=== PATIENT | male | born 1940 | race Caucasian/White ===

== ENCOUNTER 2020-08-13 17:01 | Emergency (ER) | payer MEDICARE, OTHER ==
[~2020-08-13] VITALS: Ht 167.6 cm; Wt 79.4 kg
--- NOTE | 2020-08-13 17:18 | NUR ---
PT DOES NOT REMEMBER HOME MEDICATION NAMES AND DOSAGES. PT'S IS GOING TO BRING MEDICATION LIST LATER.
[2020-08-13] MEDS ORDERED: TDAP DIPH,PERTUSS,TET VAC/PF 0.5 ML DISP.SYRIN IM ONE ×2 (17:30→18:11)
[2020-08-13 17:45] LABS: *BILIRUBIN,URIN NEGATIVE (NEGATIVE); *BLOOD, URINE NEGATIVE (NEGATIVE); *CLARITY,URINE CLEAR (CLEAR); *COLOR,URINE YELLOW (YELLOW); *KETONES,URINE NEGATIVE (NEGATIVE); *UROBILINOGEN,URINE 0.2 E.U./dl (NORMAL); LEUKOCYTE ESTERASE ,URINE NEGATIVE (NEGATIVE); NITRITE, URINE NEGATIVE (NEGATIVE); PH,URINE 7.5 (5.0-8.0); UGLUCOSE NEGATIVE (NEGATIVE)
[2020-08-13 17:51] LABS: BASOPHILS % (AUTO) 0.7 % (0.0-2.0); EOSINOPHILS # (AUTO) 0.2 K/uL (0.0-0.7); EOSINOPHILS % (AUTO) 3.5 % (0.0-7.0); LYMPHOCYTES # (AUTO) 1.8 K/uL (20.0-40.0); LYMPHOCYTES % (AUTO) 37.3 % (20.5-51.5); MEAN CORPUSCULAR HEMOGLOBIN 32.2 uug (23.8-33.4); MEAN CORPUSCULAR HGB CONC 34 g/dL (32.5-36.3); MEAN CORPUSCULAR VOLUME 94.3 fL (73.0-96.2); MONOCYTES # (AUTO) 0.5 K/uL (2.0-10.0); MONOCYTES % (AUTO) 9.4 % (0.0-11.0); NEUTROPHILS # (AUTO) 2.4 K/uL (1.8-8.9); NEUTROPHILS % (AUTO) 49.1 % (38.5-71.5); PLATELET COUNT (AUTO) 190 K/uL (152-348); RED BLOOD CELL COUNT(AUTO) 4.03 MIL/uL (4.06-5.63)
[2020-08-13 18:03] LABS: CREATININE 1.1 mg/dL (0.6-1.3); POTASSIUM 4.4 mmol/L (3.5-5.1)
[2020-08-13 18:09] LABS: BILIRUBIN,DIRECT 0.1 mg/dL (0.0-0.2); BILIRUBIN,TOTAL 0.4 mg/dL (0.2-1.0); TOTAL PROTEIN, SERUM 7.3 g/dL (6.4-8.2)
--- NOTE | 2020-08-13 19:00 | NUR ---
Assumed care of pt from day shift nurse Vi.
--- NOTE | 2020-08-13 21:21 | NUR ---
Patient discharged to home in stable condition. Written and verbal after care instructions given. Patient and family verbalizes understanding of instructions. Stressed follow up or return to ER for worsening s/s. All belongings with patient. Wheeled patient on private car, family with patient.
[2020-08-13 21:23] VITALS: BP 132/85
== END 2020-08-13 21:20 | disposition home or self-care (01) ==
LOC: ER 17:03
DX: S01.81XA Laceration without foreign body of other part of head, initial encounter (principal); W01.198A Fall on same level from slipping, tripping and stumbling with subsequent striking against other object, initial encounter; Y93.E8 Activity, other personal hygiene; Y92.031 Bathroom in apartment as the place of occurrence of the external cause; I95.1 Orthostatic hypotension; G20 Parkinson's disease; S00.83XA Contusion of other part of head, initial encounter; I44.0 Atrioventricular block, first degree
CPT/HCPCS: 36415; 70030-TC; 70450; 70486; 71045; 72125; 85025; 85730; 90715; 93005; A4217; A4663

== ENCOUNTER 2024-12-12 03:38 | Inpatient (IN) | payer MEDICARE, OTHER ==
[~2024-12-12] VITALS: Ht 165.1 cm; Wt 88.5 kg
[2024-12-12] VITALS (55 sets, daily range): BP systolic 82–148; BP diastolic 42–72; TEMP 97.1–98.6; O2SAT 92–100
[2024-12-12] MEDS ORDERED: FUROSEMIDE 40 MG/4 ML VIAL ONE (03:58)
[2024-12-12 04:01] LABS: BASOPHILS % (AUTO) 0.5 % (0.0-2.0); EOSINOPHILS % (AUTO) 0.4 % (0.0-7.0); LYMPHOCYTES # (AUTO) 1.1 K/uL (0.8-4.8); LYMPHOCYTES % (AUTO) 16.5 % (20.5-51.5); MEAN CORPUSCULAR HEMOGLOBIN 20.5 uug (23.8-33.4); MEAN CORPUSCULAR HGB CONC 31 g/dL (32.5-36.3); MEAN CORPUSCULAR VOLUME 65.7 fL (73.0-96.2); MONOCYTES # (AUTO) 0.6 K/uL (0.1-1.30); MONOCYTES % (AUTO) 8.6 % (0.0-11.0); NEUTROPHILS # (AUTO) 4.8 K/uL (1.8-8.9); PLATELET COUNT (AUTO) 286 K/uL (152-348); RED CELL DISTRIBUTION WIDTH 20.7 % (12.1-16.2); WHITE BLOOD COUNT (AUTO) 6.5 K/uL (3.6-10.2)
[2024-12-12] MEDS: FUROSEMIDE 40 MG/4 ML VIAL IV ONE (04:02)
[2024-12-12 04:11] LABS: CALCIUM 8.7 mg/dL (8.5-10.1); CARBON DIOXIDE 28 mmol/L (21-32); CHLORIDE 101 mmol/L (98-107); CREATININE 1.3 mg/dL (0.6-1.3); GLUCOSE 129 mg/dL (74-106); POTASSIUM 4.8 mmol/L (3.5-5.1); SODIUM SERUM 134 mmol/L (136-145); UREA NITROGEN, BLOOD 41 mg/dL (7-18)
[2024-12-12 04:14] LABS: DIFFERENTIAL COMMENT 1
[2024-12-12 04:16] LABS: HEMATOCRIT 18.4 % (36.7-47.1); HEMOGLOBIN 5.7 g/dL (12.5-16.3)
[2024-12-12 04:25] LABS: ALANINE AMINOTRANSFERASE 6 U/L (16-63); ALBUMIN 3.1 g/dL (3.4-5.0); ALKALINE PHOSPHATASE 51 U/L (50-136); ASPARTATE AMINOTRANSFERASE 10 U/L (15-37); BILIRUBIN,TOTAL 0.5 mg/dL (0.2-1.0); NT-PRO BNP 1795 pg/mL (0-125); TOTAL PROTEIN, SERUM 6.4 g/dL (6.4-8.2)
[2024-12-12] MEDS ORDERED: FURO20TA4 PO (04:31)
[2024-12-12] MEDS ORDERED: PANTOPRAZOLE SODIUM 40 MG VIAL ONE (04:48)
[2024-12-12] MEDS: PANTOPRAZOLE SODIUM IV 40 MG in IV DEXTROSE 5% 100 ML IV ONE (04:57)
[2024-12-12 05:09] LABS: EOSINOPHILS % (MANUAL) 2 % (0-8); LYMPHOCYTES % (MANUAL) 12 % (20-40); MONOCYTES % (MANUAL) 6 % (2-10); NEUTROPHILS % (MANUAL) 80 % (42-75); PLATELET ESTIMATE ADEQUATE
[2024-12-12 05:10] LABS: ANISOCYTOSIS 1+; HYPOCHROMASIA 2+
[2024-12-12] MEDS ORDERED: AZIL40TA PO (05:42)
[2024-12-12] MEDS ORDERED: ASPI81TA31 PO (05:42)
[2024-12-12] MEDS ORDERED: ALFU10TA10 PO (05:42)
[2024-12-12] MEDS ORDERED: PANT40TA49 PO (05:42)
[2024-12-12] MEDS ORDERED: RASA1TAB4 PO (05:42)
[2024-12-12] MEDS ORDERED: FINA5TAB11 PO (05:42)
[2024-12-12] MEDS ORDERED: AMLO-212 PO (05:42)
[2024-12-12] MEDS ORDERED: VIT1CAPS44 PO (05:42)
[2024-12-12] MEDS ORDERED: ENTA200T3 PO (05:42)
[2024-12-12] MEDS ORDERED: CARB1TAB40 PO (05:42)
[2024-12-12] MEDS ORDERED: ASCO500C18 PO (05:42)
[2024-12-12] MEDS ORDERED: CARB1TAB21 PO (05:42)
[2024-12-12] MEDS ORDERED: NEBI5TAB8 PO (05:42)
[2024-12-12] MEDS ORDERED: DOCU100T2 PO (05:42)
[2024-12-12 05:45] LABS: *BILIRUBIN,URIN NEGATIVE (NEGATIVE); *BLOOD, URINE NEGATIVE (NEGATIVE); *CLARITY,URINE CLEAR (CLEAR); *COLOR,URINE YELLOW (YELLOW); *KETONES,URINE TRACE (NEGATIVE); *PROTEIN,URINE NEGATIVE (NEGATIVE); *UROBILINOGEN,URINE 0.2 E.U./dl (NORMAL); LEUKOCYTE ESTERASE ,URINE NEGATIVE (NEGATIVE); NITRITE, URINE NEGATIVE (NEGATIVE); PH,URINE 5.5 (5.0-8.0); UGLUCOSE NEGATIVE (NEGATIVE)
[2024-12-12] MEDS ORDERED: MAGN500C16 PO (05:48)
[2024-12-12] MEDS ORDERED: MAGNESIUM HYDROXIDE 30 ML LIQUID UDC PO PRN (06:30)
[2024-12-12] MEDS ORDERED: ACETAMINOPHEN 325 MG TABLET PO PRN (06:30)
[2024-12-12] MEDS ORDERED: REMEDY ESSENTIAL ZINC PASTE 113 GM TP PRN (06:30)
[2024-12-12] MEDS ORDERED: ONDANSETRON 4 MG/2 ML VIAL IV PRN (06:30)
[2024-12-12 07:09] LABS: IRON, SERUM 21 ug/dL (50-175)
[2024-12-12 07:28] LABS: ABG BASE EXCESS 0.3 mmol/L (-2.0-3.0); ABG HCO3 25.1 mmol/L (21.0-28.0); ABG PCO2 41.8 mmHg (35.0-48.0); ABG PH 7.397 (7.350-7.450); ABG PO2 380.6 mmHg (83.0-108.0); ABG SITE RIGHT RADIAL; ABG TOTAL HEMOGLOBIN 6.3 G/dL (13.5-17.5); AaDO2 99.8 mmHg; COHb 1.3 % (0.5-1.5); MetHb 0.3 % (0.0-1.5); O2Hb 98.1 % (94.0-98.0)
[2024-12-12] MEDS ORDERED: FINASTERIDE 5 MG TABLET PO SCH (09:00)
[2024-12-12] MEDS ORDERED: METOPROLOL TARTRATE 25 MG TABLET PO SCH ×2 (09:00→21:00)
[2024-12-12] MEDS ORDERED: ENTACAPONE 200 MG TABLET PO SCH ×2 (09:00→10:00)
[2024-12-12] MEDS ORDERED: ALFUZOSIN HCL 10 MG TAB.SR.24H PO SCH (09:00)
[2024-12-12] MEDS ORDERED: AZILSARTAN MEDOXOMIL 40 MG PO SCH (09:00)
[2024-12-12] MEDS ORDERED: RASAGILINE MESYLATE 1 MG PO SCH (09:00)
[2024-12-12] MEDS ORDERED: DOXYCYCLINE HYCLATE IV 100 MG in IV DEXTROSE 5% 100 ML IV SCH (09:00)
[2024-12-12] MEDS ORDERED: DOCUSATE SODIUM 100 MG CAPSULE PO SCH (09:45)
[2024-12-12] MEDS ORDERED: FUROSEMIDE 20 MG TABLET PO SCH (10:00)
[2024-12-12] MEDS ORDERED: CEFTRIAXONE 1 G in IV DEXTROSE 5% 50 ML IV SCH (10:00)
[2024-12-12] MEDS ORDERED: ASCORBIC ACID 500 MG TABLET PO SCH (10:00)
[2024-12-12] MEDS ORDERED: MORPHINE SULFATE 2 MG/1 ML DISP.SYRIN IV PRN (10:30)
[2024-12-12] MEDS ORDERED: ACETAMINOPHEN 650 MG SUPP.RECT RC PRN (10:30)
[2024-12-12] MEDS ORDERED: CARBIDOPA/LEVODOPA 25-100MG TABLET PO SCH (10:45)
[2024-12-12] MEDS ORDERED: CARBIDOPA/LEVODOPA CR 50-200MG TABLET.SA PO SCH (10:45)
[2024-12-12] MEDS ORDERED: PIPERACILLIN SODIUM/TAZOBACTAM 3.375 G in IV DEXTROSE 5% 50 ML IV SCH (14:00)
[2024-12-12] MEDS: PIPERACILLIN SODIUM/TAZOBACTAM 3.375 G in IV DEXTROSE 5% 100 ML IV SCH (14:17)
[2024-12-12] MEDS: EDARBI 40 MG PO SCH (14:52)
[2024-12-12] MEDS: CARBIDOPA/LEVODOPA 25-100MG TABLET PO SCH (14:53)
[2024-12-12] MEDS: CARBIDOPA/LEVODOPA CR 50-200MG TABLET.SA PO SCH ×2 (14:53→20:24)
[2024-12-12] MEDS: RASAGILINE 1 MG PO SCH (14:54)
[2024-12-12] MEDS: IV D5/ 0.9% NACL 1,000 ML IV PRN (16:53)
[2024-12-12] MEDS: ENTACAPONE 200 MG TABLET PO SCH (17:00)
[2024-12-12 17:19] LABS: BASOPHILS % (AUTO) 0.3 % (0.0-2.0); DIFFERENTIAL COMMENT 0; EOSINOPHILS % (AUTO) 0.1 % (0.0-7.0); HEMATOCRIT 21.4 % (36.7-47.1); LYMPHOCYTES # (AUTO) 0.2 K/uL (0.8-4.8); LYMPHOCYTES % (AUTO) 7.8 % (20.5-51.5); MEAN CORPUSCULAR HGB CONC 32 g/dL (32.5-36.3); MEAN CORPUSCULAR VOLUME 71.1 fL (73.0-96.2); MONOCYTES # (AUTO) 0.4 K/uL (0.1-1.30); MONOCYTES % (AUTO) 15.3 % (0.0-11.0); NEUTROPHILS # (AUTO) 1.8 K/uL (1.8-8.9); NEUTROPHILS % (AUTO) 76.5 % (38.5-71.5); PLATELET COUNT (AUTO) 197 K/uL (152-348); RED BLOOD CELL COUNT(AUTO) 3.01 MIL/uL (4.06-5.63); WHITE BLOOD COUNT (AUTO) 2.4 K/uL (3.6-10.2)
[2024-12-12 17:22] LABS: HEMOGLOBIN 6.9 g/dL (12.5-16.3)
[2024-12-12 17:23] LABS: LYMPHOCYTES % (MANUAL) 0 % (20-40); NEUTROPHILS % (MANUAL) 0 % (42-75)
[2024-12-12] MEDS: PANTOPRAZOLE SODIUM 40 MG TABLET.DR PO SCH (17:44)
[2024-12-12] MEDS: NOREPINEPHRINE 8MG/NS 250ML 250 ML IV PRN (17:46)
[2024-12-12] MEDS: BISACODYL 10 MG SUPP.RECT RC PRN (17:55)
[2024-12-12 17:56] LABS: HEMATOCRIT 20.9 % (36.7-47.1); HEMOGLOBIN 6.7 g/dL (12.5-16.3)
[2024-12-12] MEDS ORDERED: NEBIVOLOL 5 MG PO SCH (18:00)
[2024-12-12] MEDS: FINASTERIDE 5 MG TABLET PO SCH (18:02)
[2024-12-12] MEDS ORDERED: FUROSEMIDE 20 MG/2 ML VIAL IV PRN (18:30)
[2024-12-12] MEDS ORDERED: AMLODIPINE 5 MG TABLET PO SCH (21:00)
[2024-12-12] MEDS ORDERED: PANTOPRAZOLE SODIUM 40 MG VIAL IV SCH (21:00)
[2024-12-12] MEDS: ALFUZOSIN HCL 10 MG TAB.SR.24H PO SCH (21:00)
[2024-12-12] MEDS ORDERED: NEBIVOLOL HCL 5 MG PO SCH (21:00)
[2024-12-13] VITALS (51 sets, daily range): BP systolic 116–164; BP diastolic 54–85; TEMP 98.6–99.6; O2SAT 92–98
[2024-12-13] MEDS: CARBIDOPA/LEVODOPA 25-100MG TABLET PO SCH (05:30)
[2024-12-13] MEDS: FUROSEMIDE 20 MG/2 ML VIAL IV ONE (05:30)
[2024-12-13] MEDS: PIPERACILLIN SODIUM/TAZOBACTAM 3.375 G in IV DEXTROSE 5% 100 ML IV SCH (05:31)
[2024-12-13] MEDS: FUROSEMIDE 20 MG/2 ML VIAL IV PRN (06:07)
[2024-12-13 06:33] LABS: BASOPHILS % (AUTO) 0.2 % (0.0-2.0); HEMATOCRIT 31.4 % (36.7-47.1); HEMOGLOBIN 10.1 g/dL (12.5-16.3); LYMPHOCYTES # (AUTO) 0.6 K/uL (0.8-4.8); LYMPHOCYTES % (AUTO) 4.6 % (20.5-51.5); MEAN CORPUSCULAR HEMOGLOBIN 24.2 uug (23.8-33.4); MEAN CORPUSCULAR HGB CONC 32 g/dL (32.5-36.3); MEAN CORPUSCULAR VOLUME 75.1 fL (73.0-96.2); MONOCYTES # (AUTO) 0.7 K/uL (0.1-1.30); MONOCYTES % (AUTO) 5.3 % (0.0-11.0); NEUTROPHILS # (AUTO) 11.2 K/uL (1.8-8.9); NEUTROPHILS % (AUTO) 89.9 % (38.5-71.5); PLATELET COUNT (AUTO) 212 K/uL (152-348); RED BLOOD CELL COUNT(AUTO) 4.19 MIL/uL (4.06-5.63); RED CELL DISTRIBUTION WIDTH 24.2 % (12.1-16.2); WHITE BLOOD COUNT (AUTO) 12.5 K/uL (3.6-10.2)
[2024-12-13 06:45] LABS: ALANINE AMINOTRANSFERASE 6 U/L (16-63); ALBUMIN 2.5 g/dL (3.4-5.0); ALKALINE PHOSPHATASE 48 U/L (50-136); ASPARTATE AMINOTRANSFERASE 22 U/L (15-37); BILIRUBIN,DIRECT 0.2 mg/dL (0.0-0.2); BILIRUBIN,TOTAL 0.6 mg/dL (0.2-1.0); CALCIUM 8.1 mg/dL (8.5-10.1); CARBON DIOXIDE 27 mmol/L (21-32); CHLORIDE 103 mmol/L (98-107); CHOLESTEROL 73 mg/dL (<200); CREATININE 1.2 mg/dL (0.6-1.3); GLUCOSE 96 mg/dL (74-106); HDL CHOLESTEROL 48 mg/dL (40-60); MAGNESIUM 2.3 mg/dL (1.8-2.4); PHOSPHOROUS 4.7 mg/dL (2.5-4.9); POTASSIUM 4.7 mmol/L (3.5-5.1); SODIUM SERUM 138 mmol/L (136-145); TOTAL PROTEIN, SERUM 5.9 g/dL (6.4-8.2); TRIGLYCERIDES 36 MG/DL (30-150); UREA NITROGEN, BLOOD 41 mg/dL (7-18)
[2024-12-13 07:06] LABS: DIFFERENTIAL COMMENT 1
[2024-12-13 08:32] LABS: THYROID STIMULATING HORMONE 3.356 mIU/mL (0.358-3.740)
[2024-12-13] MEDS: FUROSEMIDE 40 MG/4 ML VIAL IVP SCH (08:49)
[2024-12-13] MEDS: CARBIDOPA/LEVODOPA CR 50-200MG TABLET.SA PO SCH (08:51)
[2024-12-13] MEDS ORDERED: FUROSEMIDE 20 MG/2 ML VIAL IV SCH ×2 (09:00)
[2024-12-13] MEDS ORDERED: AMLODIPINE 5 MG TABLET PO SCH ×2 (09:00)
[2024-12-13 11:07] LABS: ABG BASE EXCESS -1.3 mmol/L (-2.0-3.0); ABG HCO3 22.8 mmol/L (21.0-28.0); ABG PCO2 35.9 mmHg (35.0-48.0); ABG PH 7.421 (7.350-7.450); ABG PO2 79.1 mmHg (83.0-108.0); ABG SITE LEFT RADIAL; ABG TOTAL HEMOGLOBIN 10.5 G/dL (13.5-17.5); COHb 0.3 % (0.5-1.5); MetHb 0.1 % (0.0-1.5); O2Hb 95.4 % (94.0-98.0)
[2024-12-13] MEDS: ENSURE ENLIVE (VAN) 240 ML LIQUID PO SCH (17:00)
[2024-12-13 22:15] LABS: THYROID STIMULATING HORMONE 1.705 mIU/mL (0.358-3.740)
[2024-12-14] VITALS (25 sets, daily range): BP systolic 118–164; BP diastolic 52–85; TEMP 97.9–98.9; O2SAT 88–98
[2024-12-14] MEDS: ACETAMINOPHEN 325 MG TABLET PO PRN (05:15)
[2024-12-14 05:51] LABS: BASOPHILS % (AUTO) 0.2 % (0.0-2.0); EOSINOPHILS # (AUTO) 0.1 K/uL (0.0-0.7); EOSINOPHILS % (AUTO) 0.3 % (0.0-7.0); HEMATOCRIT 30.6 % (36.7-47.1); HEMOGLOBIN 9.9 g/dL (12.5-16.3); LYMPHOCYTES # (AUTO) 0.7 K/uL (0.8-4.8); LYMPHOCYTES % (AUTO) 4.8 % (20.5-51.5); MEAN CORPUSCULAR HEMOGLOBIN 24.5 uug (23.8-33.4); MEAN CORPUSCULAR HGB CONC 32 g/dL (32.5-36.3); MEAN CORPUSCULAR VOLUME 76.2 fL (73.0-96.2); MONOCYTES # (AUTO) 0.4 K/uL (0.1-1.30); MONOCYTES % (AUTO) 2.9 % (0.0-11.0); NEUTROPHILS % (AUTO) 91.8 % (38.5-71.5); PLATELET COUNT (AUTO) 189 K/uL (152-348); RED BLOOD CELL COUNT(AUTO) 4.02 MIL/uL (4.06-5.63); RED CELL DISTRIBUTION WIDTH 23.9 % (12.1-16.2); WHITE BLOOD COUNT (AUTO) 15.3 K/uL (3.6-10.2)
[2024-12-14 06:07] LABS: DIFFERENTIAL COMMENT 1
[2024-12-14 06:24] LABS: ALANINE AMINOTRANSFERASE < 6 U/L (16-63); ALBUMIN 2.2 g/dL (3.4-5.0); ALKALINE PHOSPHATASE 60 U/L (50-136); ASPARTATE AMINOTRANSFERASE 15 U/L (15-37); BILIRUBIN,TOTAL 0.8 mg/dL (0.2-1.0); CALCIUM 8.6 mg/dL (8.5-10.1); CARBON DIOXIDE 30 mmol/L (21-32); CHLORIDE 103 mmol/L (98-107); CREATININE 1.4 mg/dL (0.6-1.3); GLUCOSE 106 mg/dL (74-106); MAGNESIUM 2.2 mg/dL (1.8-2.4); PHOSPHOROUS 4.3 mg/dL (2.5-4.9); POTASSIUM 3.3 mmol/L (3.5-5.1); SODIUM SERUM 141 mmol/L (136-145); TOTAL PROTEIN, SERUM 5.8 g/dL (6.4-8.2); UREA NITROGEN, BLOOD 45 mg/dL (7-18)
[2024-12-14 06:29] LABS: ABG HCO3 27.2 mmol/L (21.0-28.0); ABG PCO2 45.6 mmHg (35.0-48.0); ABG PH 7.394 (7.350-7.450); ABG PO2 82.9 mmHg (83.0-108.0); ABG SITE LEFT RADIAL; ABG TOTAL HEMOGLOBIN 9.9 G/dL (13.5-17.5); AaDO2 96.1 mmHg; COHb 0.2 % (0.5-1.5); MetHb 0.1 % (0.0-1.5); O2Hb 95.6 % (94.0-98.0)
[2024-12-14] MEDS ORDERED: IV NORMAL SALINE 250 ML IV ONE (09:01)
[2024-12-14] MEDS ORDERED: IOHEXOL 300MG/ML 100 ML INFUS..BTL ONE (09:01)
[2024-12-14] MEDS ORDERED: SWABABLE VALVE TRANSFER SET EA MC ONE (09:01)
[2024-12-14 09:19] LABS: BASOPHILS % (AUTO) 0.3 % (0.0-2.0); EOSINOPHILS # (AUTO) 0.2 K/uL (0.0-0.7); EOSINOPHILS % (AUTO) 0.9 % (0.0-7.0); HEMATOCRIT 30.7 % (36.7-47.1); HEMOGLOBIN 9.9 g/dL (12.5-16.3); LYMPHOCYTES # (AUTO) 0.8 K/uL (0.8-4.8); LYMPHOCYTES % (AUTO) 4.7 % (20.5-51.5); MEAN CORPUSCULAR HEMOGLOBIN 24.4 uug (23.8-33.4); MEAN CORPUSCULAR HGB CONC 32 g/dL (32.5-36.3); MEAN CORPUSCULAR VOLUME 75.9 fL (73.0-96.2); MONOCYTES # (AUTO) 0.4 K/uL (0.1-1.30); MONOCYTES % (AUTO) 2.3 % (0.0-11.0); NEUTROPHILS # (AUTO) 15.1 K/uL (1.8-8.9); NEUTROPHILS % (AUTO) 91.8 % (38.5-71.5); PLATELET COUNT (AUTO) 181 K/uL (152-348); RED BLOOD CELL COUNT(AUTO) 4.04 MIL/uL (4.06-5.63); RED CELL DISTRIBUTION WIDTH 24.5 % (12.1-16.2); WHITE BLOOD COUNT (AUTO) 16.5 K/uL (3.6-10.2)
[2024-12-14 09:21] LABS: DIFFERENTIAL COMMENT 1
[2024-12-14] MEDS: EDARBI 40 MG PO SCH (09:41)
[2024-12-14] MEDS ORDERED: CEFEPIME HCL 1 G in IV DEXTROSE 5% 50 ML IV SCH (09:45)
[2024-12-14] MEDS: CEFEPIME HCL 1 G in IV DEXTROSE 5% 50 ML IV SCH (10:02)
[2024-12-14] MEDS: POTASSIUM CHLORIDE 50 ML IV ONE (10:23)
[2024-12-14] MEDS: VANCOMYCIN HCL 1,500 MG in IV DEXTROSE 5% 500 ML IV SCH (10:32)
[2024-12-14] MEDS ORDERED: POTASSIUM CHLORIDE 50 ML IV SCH ×2 (12:00→12:15)
[2024-12-14] MEDS: NEBIVOLOL 5 MG PO SCH (17:36)
[2024-12-14] MEDS: ALBUTEROL SULFATE 2.5 MG/3 ML NEBU NEB PRN (22:10)
[2024-12-15] VITALS (9 sets, daily range): BP systolic 138–157; BP diastolic 54–60; TEMP 98.4–99; O2SAT 92–95
[2024-12-15 06:18] LABS: ABG BASE EXCESS 6.2 mmol/L (-2.0-3.0); ABG HCO3 31.2 mmol/L (21.0-28.0); ABG PCO2 47.2 mmHg (35.0-48.0); ABG PH 7.438 (7.350-7.450); ABG PO2 65.4 mmHg (83.0-108.0); ABG SITE RIGHT RADIAL; ABG TOTAL HEMOGLOBIN 10.5 G/dL (13.5-17.5); AaDO2 93.3 mmHg; COHb 0.6 % (0.5-1.5); O2Hb 92.3 % (94.0-98.0)
[2024-12-15 07:09] LABS: BASOPHILS % (AUTO) 0.3 % (0.0-2.0); EOSINOPHILS # (AUTO) 0.2 K/uL (0.0-0.7); HEMATOCRIT 29.3 % (36.7-47.1); HEMOGLOBIN 9.5 g/dL (12.5-16.3); LYMPHOCYTES % (AUTO) 5.8 % (20.5-51.5); MEAN CORPUSCULAR HEMOGLOBIN 24.5 uug (23.8-33.4); MEAN CORPUSCULAR HGB CONC 32 g/dL (32.5-36.3); MEAN CORPUSCULAR VOLUME 75.7 fL (73.0-96.2); MONOCYTES # (AUTO) 0.5 K/uL (0.1-1.30); MONOCYTES % (AUTO) 2.8 % (0.0-11.0); NEUTROPHILS # (AUTO) 15.3 K/uL (1.8-8.9); NEUTROPHILS % (AUTO) 90.1 % (38.5-71.5); PLATELET COUNT (AUTO) 176 K/uL (152-348); RED BLOOD CELL COUNT(AUTO) 3.88 MIL/uL (4.06-5.63); RED CELL DISTRIBUTION WIDTH 25.3 % (12.1-16.2)
[2024-12-15 07:34] LABS: DIFFERENTIAL COMMENT 1
[2024-12-15 07:40] LABS: CALCIUM 8.8 mg/dL (8.5-10.1); CARBON DIOXIDE 36 mmol/L (21-32); CHLORIDE 98 mmol/L (98-107); CREATININE 1.1 mg/dL (0.6-1.3); GLUCOSE 111 mg/dL (74-106); MAGNESIUM 1.9 mg/dL (1.8-2.4); PHOSPHOROUS 2.9 mg/dL (2.5-4.9); POTASSIUM 2.8 mmol/L (3.5-5.1); SODIUM SERUM 140 mmol/L (136-145); UREA NITROGEN, BLOOD 41 mg/dL (7-18)
[2024-12-15 09:02] LABS: ANISOCYTOSIS 1+; EOSINOPHILS % (MANUAL) 1 % (0-8); HYPOCHROMASIA 1+; LYMPHOCYTES % (MANUAL) 6 % (20-40); MONOCYTES % (MANUAL) 3 % (2-10); NEUTROPHILS % (MANUAL) 90 % (42-75); PLATELET ESTIMATE ADEQUATE
[2024-12-15 09:16] LABS: *OCCULT BLOOD STOOL NEGATIVE (NEGATIVE)
[2024-12-15] MEDS ORDERED: POTASSIUM CHLORIDE 20 MEQ TAB.PRT.SR PO SCH (11:45)
[2024-12-15] MEDS: SOD FERRIC GLUC COMPLX/SUCROSE 125 MG in IV NORMAL SALINE 100 ML IV SCH (14:49)
[2024-12-15] MEDS ORDERED: DIATR MEGLU/DIATRIZOATE SODIUM 120 ML BOTTLE ONE (15:47)
[2024-12-15] MEDS: POTASSIUM CHLORIDE 50 ML IV SCH (15:58)
[2024-12-16] VITALS (11 sets, daily range): BP systolic 114–163; BP diastolic 55–70; TEMP 98.6–99.1; O2SAT 92–99
[2024-12-16 06:47] LABS: BASOPHILS % (AUTO) 0.4 % (0.0-2.0); EOSINOPHILS # (AUTO) 0.1 K/uL (0.0-0.7); EOSINOPHILS % (AUTO) 1.2 % (0.0-7.0); HEMATOCRIT 31.1 % (36.7-47.1); HEMOGLOBIN 10.2 g/dL (12.5-16.3); LYMPHOCYTES # (AUTO) 0.8 K/uL (0.8-4.8); LYMPHOCYTES % (AUTO) 6.8 % (20.5-51.5); MEAN CORPUSCULAR HEMOGLOBIN 24.6 uug (23.8-33.4); MEAN CORPUSCULAR HGB CONC 33 g/dL (32.5-36.3); MEAN CORPUSCULAR VOLUME 75.2 fL (73.0-96.2); MONOCYTES # (AUTO) 0.6 K/uL (0.1-1.30); MONOCYTES % (AUTO) 5.2 % (0.0-11.0); NEUTROPHILS # (AUTO) 10.1 K/uL (1.8-8.9); NEUTROPHILS % (AUTO) 86.4 % (38.5-71.5); PLATELET COUNT (AUTO) 176 K/uL (152-348); RED BLOOD CELL COUNT(AUTO) 4.14 MIL/uL (4.06-5.63); RED CELL DISTRIBUTION WIDTH 25.4 % (12.1-16.2); WHITE BLOOD COUNT (AUTO) 11.6 K/uL (3.6-10.2)
[2024-12-16 07:01] LABS: DIFFERENTIAL COMMENT 1
[2024-12-16 07:02] LABS: ALANINE AMINOTRANSFERASE < 6 U/L (16-63); ALBUMIN 2.1 g/dL (3.4-5.0); ALKALINE PHOSPHATASE 107 U/L (50-136); ASPARTATE AMINOTRANSFERASE 21 U/L (15-37); BILIRUBIN,TOTAL 0.8 mg/dL (0.2-1.0); CALCIUM 9.3 mg/dL (8.5-10.1); CARBON DIOXIDE 40 mmol/L (21-32); CHLORIDE 98 mmol/L (98-107); CREATININE 0.9 mg/dL (0.6-1.3); GLUCOSE 109 mg/dL (74-106); MAGNESIUM 1.7 mg/dL (1.8-2.4); PHOSPHOROUS 2.7 mg/dL (2.5-4.9); POTASSIUM 3.1 mmol/L (3.5-5.1); SODIUM SERUM 143 mmol/L (136-145); TOTAL PROTEIN, SERUM 5.9 g/dL (6.4-8.2); UREA NITROGEN, BLOOD 36 mg/dL (7-18)
[2024-12-16] MEDS ORDERED: POTASSIUM CHLORIDE 20 MEQ POWDER PACKET GT ONE (08:00)
[2024-12-16 08:10] LABS: *IMMUNOGLOBULIN G, SERUM 756 mg/dL (603-1613); IMMUNOGLOBULIN A, SERUM 93 mg/dL (61-437); IMMUNOGLOBULIN M, SERUM 114 mg/dL (15-143)
[2024-12-16] MEDS: VANCOMYCIN HCL 1,500 MG in IV DEXTROSE 5% 500 ML IV SCH (08:19)
[2024-12-16] MEDS: POTASSIUM CHLORIDE 20 MEQ TAB.PRT.SR PO ONE (08:27)
[2024-12-16] MEDS: AMLODIPINE 5 MG TABLET PO SCH (08:27)
[2024-12-16 08:35] LABS: BAND % (MANUAL) 1 % (0-10); HYPOCHROMASIA 1+; LYMPHOCYTES % (MANUAL) 3 % (20-40); METAMYELOCYTES % 1 % (0-1); MONOCYTES % (MANUAL) 7 % (2-10); NEUTROPHILS % (MANUAL) 88 % (42-75); PLATELET ESTIMATE ADEQUATE
[2024-12-16 08:36] LABS: ANISOCYTOSIS 3+
[2024-12-16] MEDS: FUROSEMIDE 40 MG/4 ML VIAL IV SCH (09:30)
[2024-12-16] MEDS: CEFEPIME HCL 2 GM in IV DEXTROSE 5% 100 ML IV SCH (10:36)
[2024-12-16] MEDS: MAGNESIUM SULFATE/D5W 100 ML IV SCH (12:45)
[2024-12-16] MEDS: POTASSIUM CHLORIDE 50 ML IV SCH (16:42)
[2024-12-16] MEDS ORDERED: ALFUZOSIN HCL 10 MG TAB.SR.24H PO ONE (20:22)
[2024-12-16] MEDS: METOPROLOL TARTRATE 5 MG/5 ML VIAL IVP PRN (20:32)
[2024-12-17 00:05] VITALS: BP 149/62; TEMP 98.3; O2SAT 93
[2024-12-17 04:11] LABS: FREE KAPPA LT CHAINS SERUM 35.5 mg/L (3.3-19.4); FREE LAMBDA LT CHAIN SERUM 32.6 mg/L (5.7-26.3); KAPPA/LAMBDA RATIO SERUM 1.09 (0.26-1.65)
[2024-12-17 05:20] VITALS: BP_SYST 150; BP_SYST 153; BP_DIAS 65; BP_DIAS 68; TEMP 98.7; O2SAT 96
[2024-12-17 07:05] LABS: BASOPHILS % (AUTO) 0.5 % (0.0-2.0); EOSINOPHILS # (AUTO) 0.2 K/uL (0.0-0.7); EOSINOPHILS % (AUTO) 2.5 % (0.0-7.0); HEMATOCRIT 32.9 % (36.7-47.1); LYMPHOCYTES # (AUTO) 0.8 K/uL (0.8-4.8); MEAN CORPUSCULAR HEMOGLOBIN 25.3 uug (23.8-33.4); MEAN CORPUSCULAR HGB CONC 33 g/dL (32.5-36.3); MEAN CORPUSCULAR VOLUME 75.7 fL (73.0-96.2); MONOCYTES # (AUTO) 0.9 K/uL (0.1-1.30); MONOCYTES % (AUTO) 11.6 % (0.0-11.0); NEUTROPHILS # (AUTO) 5.6 K/uL (1.8-8.9); NEUTROPHILS % (AUTO) 74.4 % (38.5-71.5); PLATELET COUNT (AUTO) 187 K/uL (152-348); RED BLOOD CELL COUNT(AUTO) 4.34 MIL/uL (4.06-5.63); RED CELL DISTRIBUTION WIDTH 26.1 % (12.1-16.2); WHITE BLOOD COUNT (AUTO) 7.5 K/uL (3.6-10.2)
[2024-12-17 07:10] LABS: DIFFERENTIAL COMMENT 1
[2024-12-17 07:15] LABS: CALCIUM 9.2 mg/dL (8.5-10.1); CHLORIDE 97 mmol/L (98-107); CREATININE 0.9 mg/dL (0.6-1.3); GLUCOSE 122 mg/dL (74-106); MAGNESIUM 1.8 mg/dL (1.8-2.4); PHOSPHOROUS 2.3 mg/dL (2.5-4.9); POTASSIUM 3.4 mmol/L (3.5-5.1); SODIUM SERUM 140 mmol/L (136-145); UREA NITROGEN, BLOOD 31 mg/dL (7-18)
[2024-12-17 07:44] LABS: CARBON DIOXIDE 43 mmol/L (21-32)
[2024-12-17 08:00] VITALS: BP 136/67; TEMP 98.6; O2SAT 95
[2024-12-17 12:00] VITALS: BP 109/55; TEMP 99.2; O2SAT 93
[2024-12-17] MEDS: POTASSIUM CHLORIDE 20 MEQ TAB.PRT.SR PO ONE (12:47)
[2024-12-17 15:09] LABS: A/G RATIO 0.9 (0.7-1.7); ALBUMIN 2.3 g/dL (2.9-4.4); ALPHA-1-GLOBULIN 0.4 g/dL (0.0-0.4); ALPHA-2-GLOBULIN 0.8 g/dL (0.4-1.0); BETA GLOBULIN 0.8 g/dL (0.7-1.3); GAMMA GLOBULIN 0.6 g/dL (0.4-1.8); GLOBULIN, TOTAL 2.6 g/dL (2.2-3.9); M-SPIKE Not Observed g/dL (Not Observed); PROTEIN, TOTAL 4.9 g/dL (6.0-8.5)
[2024-12-17 16:00] VITALS: BP 125/51; TEMP 98.6; O2SAT 93
[2024-12-17] MEDS: NEUTRA PHOS PACKET PO ONE (16:32)
[2024-12-17 19:30] VITALS: BP 142/56; TEMP 98; O2SAT 92
[2024-12-18] VITALS (7 sets, daily range): BP systolic 116–141; BP diastolic 49–66; TEMP 97.4–98.7; O2SAT 92–95
[2024-12-18 07:11] LABS: CALCIUM 8.9 mg/dL (8.5-10.1); CARBON DIOXIDE 39 mmol/L (21-32); CHLORIDE 99 mmol/L (98-107); CREATININE 0.8 mg/dL (0.6-1.3); GLUCOSE 124 mg/dL (74-106); PHOSPHOROUS 2.6 mg/dL (2.5-4.9); POTASSIUM 3.8 mmol/L (3.5-5.1); SODIUM SERUM 137 mmol/L (136-145); UREA NITROGEN, BLOOD 30 mg/dL (7-18)
[2024-12-18 07:13] LABS: BASOPHILS % (AUTO) 0.6 % (0.0-2.0); EOSINOPHILS # (AUTO) 0.1 K/uL (0.0-0.7); EOSINOPHILS % (AUTO) 1.5 % (0.0-7.0); HEMATOCRIT 34.8 % (36.7-47.1); HEMOGLOBIN 11.1 g/dL (12.5-16.3); LYMPHOCYTES # (AUTO) 0.7 K/uL (0.8-4.8); MEAN CORPUSCULAR HGB CONC 32 g/dL (32.5-36.3); MEAN CORPUSCULAR VOLUME 75.2 fL (73.0-96.2); MONOCYTES # (AUTO) 0.9 K/uL (0.1-1.30); MONOCYTES % (AUTO) 10.5 % (0.0-11.0); NEUTROPHILS # (AUTO) 6.5 K/uL (1.8-8.9); NEUTROPHILS % (AUTO) 78.4 % (38.5-71.5); PLATELET COUNT (AUTO) 203 K/uL (152-348); RED BLOOD CELL COUNT(AUTO) 4.63 MIL/uL (4.06-5.63); RED CELL DISTRIBUTION WIDTH 26.2 % (12.1-16.2); WHITE BLOOD COUNT (AUTO) 8.3 K/uL (3.6-10.2)
[2024-12-18 07:21] LABS: DIFFERENTIAL COMMENT 1
[2024-12-18] MEDS ORDERED: LEVO500T90 PO (13:11)
== END 2024-12-18 19:35 | disposition home health service (06) | DRG 291 ==
LOC: ER 03:40 → CCU 08:14 → TELE3 12-14 18:37 → MEDSURG3 12-18 10:57
PROVIDERS: ATTEND Internal Medicine
PROC: 5A09357 Assistance with Respiratory Ventilation, Less than 24 Consecutive Hours, Continuous Positive Airway Pressure (ICD-10-PCS; principal; 2024-12-12)
PROC: 30233N1 Transfusion of Nonautologous Red Blood Cells into Peripheral Vein, Percutaneous Approach (ICD-10-PCS; 2024-12-12)
PROC: 05HD33Z Insertion of Infusion Device into Right Cephalic Vein, Percutaneous Approach (ICD-10-PCS; 2024-12-15)
DX: I11.0 Hypertensive heart disease with heart failure (principal); I50.33 Acute on chronic diastolic (congestive) heart failure; J96.01 Acute respiratory failure with hypoxia; J96.02 Acute respiratory failure with hypercapnia; N17.0 Acute kidney failure with tubular necrosis; J69.0 Pneumonitis due to inhalation of food and vomit; R57.9 Shock, unspecified; K40.30 Unilateral inguinal hernia, with obstruction, without gangrene, not specified as recurrent; I44.7 Left bundle-branch block, unspecified; Z74.09 Other reduced mobility; G90.89 Other disorders of autonomic nervous system; I95.1 Orthostatic hypotension; R59.0 Localized enlarged lymph nodes; K44.9 Diaphragmatic hernia without obstruction or gangrene; G20.A1 Parkinson's disease without dyskinesia, without mention of fluctuations; Z86.19 Personal history of other infectious and parasitic diseases; D50.9 Iron deficiency anemia, unspecified; M43.06 Spondylolysis, lumbar region; N40.0 Benign prostatic hyperplasia without lower urinary tract symptoms; F06.70 Mild neurocognitive disorder due to known physiological condition without behavioral disturbance; K57.30 Diverticulosis of large intestine without perforation or abscess without bleeding; M51.369 Other intervertebral disc degeneration, lumbar region without mention of lumbar back pain or lower extremity pain
CPT/HCPCS: 36415; 36600; 70030-TC; 71045; 71260; 74250; 82378; 82746; 82784; 82803; 83010; 83550; 83605; 83615; 83735; 84100; 84153; 84155; 84165; 84443; 84484; 85018; 85025; 85610; 85730; 86334; 86850; 86900; 86901; 86920; 87040; 93307; 94640; 94660; 94760; A4606; G0378; J0692; J0696; J1940; J2470; J2543; J2916; J3371; J3475; J3480; J3490; J7040; J7060; J8499; P9016; Q9963; Q9967

== ENCOUNTER 2025-08-10 14:15 | Inpatient (IN) | payer MEDICARE, OTHER ==
[2025-08-10] VITALS (10 sets, daily range): BP systolic 80–106; BP diastolic 46–56; TEMP 97.5–99.2; O2SAT 96–98
[~2025-08-10] VITALS: Ht 167.6 cm; Wt 58.1 kg
[~2025-08-10 14:15] MED LIST: ALFU10TA10 PO; AMLO-212 PO; ASCO500C18 PO; ASPI81TA31 PO; AZIL40TA PO; CARB1TAB21 PO; CARB1TAB40 PO; DOCU100T2 PO; ENTA200T3 PO; FINA5TAB11 PO; FURO20TA4 PO; LEVO500T90 PO; MAGN500C16 PO; NEBI5TAB8 PO; PANT40TA49 PO; RASA1TAB4 PO; VIT1CAPS44 PO
[2025-08-10] MEDS: ETOMIDATE 20 MG/10 ML VIAL IV ONE (14:19)
[2025-08-10] MEDS ORDERED: PROPOFOL 100 ML ONE (14:22)
[2025-08-10] MEDS: PROPOFOL 100 ML IV PRN (14:30)
[2025-08-10] MEDS ORDERED: CARB1TAB21 PO ×4 (14:45→15:46)
[2025-08-10] MEDS ORDERED: ALFU10TA10 PO (14:45)
[2025-08-10] MEDS ORDERED: RASA1TAB4 PO (14:45)
[2025-08-10] MEDS ORDERED: FINA5TAB3 PO (14:46)
[2025-08-10] MEDS ORDERED: ENTA200T3 PO (14:46)
[2025-08-10] MEDS ORDERED: CARB1TAB40 PO ×3 (14:46)
[2025-08-10] MEDS ORDERED: PANT40TA49 PO (14:46)
[2025-08-10] MEDS ORDERED: CEFTRIAXONE /D5W 50ML IVPB **ER PYXIS IV ONE (14:52)
[2025-08-10] MEDS ORDERED: CLINDAMYCIN 600 MG PIGGYBACK**ER OMNI IV ONE (14:53)
[2025-08-10] MEDS ORDERED: ROCURONIUM BROMIDE 50 MG/5 ML VIAL ONE (15:00)
[2025-08-10] MEDS ORDERED: ETOMIDATE 20 MG/10 ML VIAL ONE (15:00)
[2025-08-10 15:13] LABS: PLATELET COUNT (AUTO) 207 K/uL (152-348); RED BLOOD CELL COUNT(AUTO) 3.68 MIL/uL (4.06-5.63); RED CELL DISTRIBUTION WIDTH 14.7 % (12.1-16.2); WHITE BLOOD COUNT (AUTO) 13.5 K/uL (3.6-10.2)
[2025-08-10 15:20] LABS: *BILIRUBIN,URIN 1+ (NEGATIVE); *BLOOD, URINE NEGATIVE (NEGATIVE); *CLARITY,URINE SLIGHTLY CLOUDY (CLEAR); *COLOR,URINE DARK YELLOW (YELLOW); *KETONES,URINE 1+ (NEGATIVE); *PROTEIN,URINE 1+ (NEGATIVE); *UROBILINOGEN,URINE 0.2 E.U./dl (NORMAL); CREATININE 0.4 mg/dL (0.6-1.3); LEUKOCYTE ESTERASE ,URINE NEGATIVE (NEGATIVE); NITRITE, URINE NEGATIVE (NEGATIVE); SODIUM SERUM 133 mmol/L (136-145); UGLUCOSE NEGATIVE (NEGATIVE); UREA NITROGEN, BLOOD 29 mg/dL (7-18)
[2025-08-10 15:26] LABS: ASPARTATE AMINOTRANSFERASE 15 U/L (15-37); TOTAL PROTEIN, SERUM 6.4 g/dL (6.4-8.2)
[2025-08-10 15:33] LABS: ABG BASE EXCESS 6.9 mmol/L (-2.0-3.0); ABG HCO3 30.1 mmol/L (21.0-28.0); ABG PCO2 38.0 mmHg (35.0-48.0); ABG PH 7.517 (7.350-7.450); ABG PO2 213.0 mmHg (83.0-108.0); ABG SITE RIGHT RADIAL; ABG TOTAL HEMOGLOBIN 12.5 G/dL (13.5-17.5); AaDO2 99.5 mmHg; FIO2 100.0 %; PEEP,BG 5.0 cmH20; SET RATE, BG 2.0; VT, ABG 500 mL
[2025-08-10 15:33] LABS: SQUAMOUS EPITHELIAL CELL,UR FEW /HPF (NONE SEEN); URINE AMORPHOUS URATE MODERATE /HPF
[2025-08-10] MEDS ORDERED: FLUT1BLS6 INH (15:41)
[2025-08-10] MEDS: CLINDAMYCIN PHOSPHATE IV 600 MG in IV DEXTROSE 5% 100 ML IV ONE (15:42)
[2025-08-10 15:48] LABS: BAND % (MANUAL) 11 % (0-10); LYMPHOCYTES % (MANUAL) 1 % (20-40); MONOCYTES % (MANUAL) 2 % (2-10); NEUTROPHILS % (MANUAL) 86 % (42-75)
[2025-08-10 15:49] LABS: PLATELET ESTIMATE ADEQUATE
[2025-08-10] MEDS ORDERED: CYCL5.5D EACHEYE (15:50)
[2025-08-10] MEDS ORDERED: EVOL140P3 SQ (15:51)
[2025-08-10] MEDS ORDERED: GABA-532 PO (15:52)
[2025-08-10] MEDS ORDERED: [UNRECOGNIZED DRUG - SUPPLY] TOP (15:53)
[2025-08-10] MEDS ORDERED: FERR-68 PO (15:54)
[2025-08-10] MEDS ORDERED: CALC-343 PO (15:54)
[2025-08-10] MEDS ORDERED: CALC500T89 PO (15:55)
[2025-08-10] MEDS ORDERED: ONDANSETRON 4 MG/2 ML VIAL IV PRN (17:30)
[2025-08-10] MEDS ORDERED: ACETAMINOPHEN 325 MG TABLET PO PRN (17:30)
[2025-08-10] MEDS ORDERED: PIPERACILLIN SODIUM/TAZOBACTAM 4.5 G in IV DEXTROSE 5% 50 ML IV SCH (17:30)
[2025-08-10] MEDS ORDERED: REMEDY ESSENTIAL ZINC PASTE 113 GM TP PRN (17:30)
[2025-08-10] MEDS ORDERED: MAGNESIUM HYDROXIDE 30 ML LIQUID UDC PO PRN (17:30)
[2025-08-10] MEDS ORDERED: PIPERACILLIN SODIUM/TAZOBACTAM 3.375 G in IV DEXTROSE 5% 100 ML IV SCH (18:00)
[2025-08-10] MEDS: VANCOMYCIN IV 1,250 MG in IV DEXTROSE 5% 250 ML IV SCH (18:46)
[2025-08-10] MEDS: ROCURONIUM BROMIDE 50 MG/5 ML VIAL IV ONE (19:30)
[2025-08-10] MEDS: PIPERACILLIN SODIUM/TAZOBACTAM 3.375 G in IV DEXTROSE 5% 100 ML IV SCH (21:11)
[2025-08-10] MEDS: ENOXAPARIN SODIUM 40 MG/0.4 ML DISP.SYRIN SQ SCH (21:14)
[2025-08-10] MEDS: CARBIDOPA/LEVODOPA 25-100MG TABLET PO SCH (22:23)
[2025-08-10] MEDS: CARBIDOPA/LEVODOPA CR 50-200MG TABLET.SA PO SCH (23:00)
[2025-08-11] VITALS (46 sets, daily range): BP systolic 64–255; BP diastolic 39–93; TEMP 97.4–102; O2SAT 93–100
[2025-08-11] MEDS: NOREPINEPHRINE 8MG/NS 250ML 250 ML IV PRN (03:14)
[2025-08-11] MEDS: ENTACAPONE 200 MG TABLET PO SCH (05:00)
[2025-08-11] MEDS: CARBIDOPA/LEVODOPA 25-100MG TABLET PO SCH ×3 (05:00→13:55)
[2025-08-11 05:10] LABS: PLATELET COUNT (AUTO) 198 K/uL (152-348); RED BLOOD CELL COUNT(AUTO) 3.44 MIL/uL (4.06-5.63); RED CELL DISTRIBUTION WIDTH 14.7 % (12.1-16.2); WHITE BLOOD COUNT (AUTO) 16.4 K/uL (3.6-10.2)
[2025-08-11 05:21] LABS: CREATININE 0.9 mg/dL (0.6-1.3); SODIUM SERUM 132 mmol/L (136-145); UREA NITROGEN, BLOOD 34 mg/dL (7-18)
[2025-08-11] MEDS ORDERED: PANTOPRAZOLE SODIUM 40 MG TABLET.DR PO SCH ×2 (07:00→09:00)
[2025-08-11] MEDS ORDERED: ACETAMINOPHEN 325 MG TABLET NG PRN (07:05)
[2025-08-11] MEDS: CARBIDOPA/LEVODOPA CR 50-200MG TABLET.SA PO SCH ×2 (08:00→13:56)
[2025-08-11] MEDS: ACETAMINOPHEN 325 MG SUPP RC PRN (08:27)
[2025-08-11] MEDS: FUROSEMIDE 40 MG/4 ML VIAL IV SCH (08:30)
[2025-08-11] MEDS ORDERED: FERROUS SULFATE 325 MG TABEC PO SCH (09:00)
[2025-08-11] MEDS: ASPIRIN 81 MG TAB.CHEW PO SCH (09:00)
[2025-08-11 09:13] LABS: ABG BASE EXCESS 4.5 mmol/L (-2.0-3.0); ABG HCO3 29.0 mmol/L (21.0-28.0); ABG PCO2 42.8 mmHg (35.0-48.0); ABG PH 7.449 (7.350-7.450); ABG PO2 94.0 mmHg (83.0-108.0); ABG TOTAL HEMOGLOBIN 14.5 G/dL (13.5-17.5); AaDO2 97.4 mmHg; FIO2 50.0 %
[2025-08-11] MEDS: CALCIUM CARBONATE 500 MG TABLET PO SCH (10:33)
[2025-08-11] MEDS: FERROUS SULFATE 300 MG/5 ML LIQUID UDC NG SCH (10:38)
[2025-08-11] MEDS: PANTOPRAZOLE ORAL SUSPENSION 40 MG SUSPDR.PKT NG SCH (10:38)
[2025-08-11] MEDS: FINASTERIDE 5 MG TABLET PO SCH (10:40)
[2025-08-11] MEDS ORDERED: CARBIDOPA/LEVODOPA 25-100MG TABLET PO SCH ×2 (13:00→17:00)
[2025-08-11] MEDS: IPRATROPIUM BROMIDE 0.5 MG/2.5 ML NEBU NEB SCH (14:30)
[2025-08-11] MEDS: ALBUTEROL SULFATE 2.5 MG/3 ML NEBU NEB SCH (14:30)
[2025-08-11] MEDS: GABAPENTIN 100 MG CAPSULE PO SCH (20:48)
[2025-08-11] MEDS ORDERED: ALFUZOSIN HCL 10 MG TAB.SR.24H PO SCH (21:00)
[2025-08-11] MEDS ORDERED: AZITHROMYCIN 500MG/ D5W 250ML IVPB **ER PYXIS ONLY IV ONE (21:14)
[2025-08-11] MEDS: AZITHROMYCIN IV 500 MG in IV DEXTROSE 5% 250 ML IV SCH (21:22)
[2025-08-12] VITALS (46 sets, daily range): BP systolic 119–167; BP diastolic 59–83; TEMP 97.8–98.8; O2SAT 93–100
[2025-08-12 06:10] LABS: CREATININE 0.8 mg/dL (0.6-1.3); SODIUM SERUM 131 mmol/L (136-145); UREA NITROGEN, BLOOD 33 mg/dL (7-18)
[2025-08-12] MEDS: POTASSIUM CHLORIDE 20 MEQ POWDER PACKET NG ONE (07:45)
[2025-08-12 07:49] LABS: ABG BASE EXCESS 5.3 mmol/L (-2.0-3.0); ABG HCO3 29.3 mmol/L (21.0-28.0); ABG PCO2 40.6 mmHg (35.0-48.0); ABG PH 7.476 (7.350-7.450); ABG PO2 143.5 mmHg (83.0-108.0); ABG SITE RIGHT RADIAL; ABG TOTAL HEMOGLOBIN 11.2 G/dL (13.5-17.5); AaDO2 99.0 mmHg; FIO2 50.0 %; PEEP,BG 5.0 cmH20
[2025-08-12] MEDS ORDERED: DC PROPOFOL ONCE EXTUBATED XX PRN (08:10)
[2025-08-12] MEDS: POTASSIUM CHLORIDE 50 ML IV SCH ×2 (09:23→11:21)
[2025-08-12] MEDS: HYDROMORPHONE 1 MG/1 ML DISP.SYRIN IV ONE (13:45)
[2025-08-12] MEDS: ALFUZOSIN HCL 10 MG TAB.SR.24H PO SCH (21:00)
[2025-08-12] MEDS: ENOXAPARIN SODIUM 40 MG/0.4 ML DISP.SYRIN SQ SCH (21:00)
[2025-08-12] MEDS: AZITHROMYCIN IV 500 MG in IV DEXTROSE 5% 250 ML IV SCH (21:32)
[2025-08-13] VITALS (43 sets, daily range): BP systolic 112–177; BP diastolic 58–143; TEMP 98–99; O2SAT 92–99
[2025-08-13 05:05] LABS: PLATELET COUNT (AUTO) 201 K/uL (152-348); RED BLOOD CELL COUNT(AUTO) 3.33 MIL/uL (4.06-5.63); RED CELL DISTRIBUTION WIDTH 14.9 % (12.1-16.2); WHITE BLOOD COUNT (AUTO) 13.4 K/uL (3.6-10.2)
[2025-08-13 05:26] LABS: CREATININE 0.6 mg/dL (0.6-1.3); SODIUM SERUM 136 mmol/L (136-145); UREA NITROGEN, BLOOD 29 mg/dL (7-18)
[2025-08-13 05:54] LABS: ABG BASE EXCESS 3.6 mmol/L (-2.0-3.0); ABG HCO3 27.2 mmol/L (21.0-28.0); ABG PCO2 37.2 mmHg (35.0-48.0); ABG PH 7.482 (7.350-7.450); ABG PO2 72.7 mmHg (83.0-108.0); ABG SITE RIGHT BRACHIAL; ABG TOTAL HEMOGLOBIN 10.6 G/dL (13.5-17.5); AaDO2 95.7 mmHg; FIO2 36.0 %; FLOW, BLOOD GAS 4.00 L/min (0.00-30.00)
[2025-08-13] MEDS: PANTOPRAZOLE SODIUM 40 MG TABLET.DR PO SCH (06:36)
[2025-08-13] MEDS: FUROSEMIDE 40 MG/4 ML VIAL IV ONE (07:49)
[2025-08-13] MEDS: FERROUS SULFATE 325 MG TABEC PO SCH (10:35)
[2025-08-13] MEDS: HYDROMORPHONE 1 MG/1 ML DISP.SYRIN IV ONE (12:44)
[2025-08-14] VITALS (15 sets, daily range): BP systolic 125–146; BP diastolic 57–70; TEMP 97.8–99.7; O2SAT 93–98
[2025-08-14 07:24] LABS: CREATININE 0.7 mg/dL (0.6-1.3); SODIUM SERUM 138 mmol/L (136-145); UREA NITROGEN, BLOOD 33 mg/dL (7-18)
[2025-08-14 07:35] LABS: PLATELET COUNT (AUTO) 214 K/uL (152-348); RED BLOOD CELL COUNT(AUTO) 3.21 MIL/uL (4.06-5.63); RED CELL DISTRIBUTION WIDTH 15.1 % (12.1-16.2); WHITE BLOOD COUNT (AUTO) 5.8 K/uL (3.6-10.2)
[2025-08-14] MEDS: POTASSIUM CHLORIDE 20 MEQ POWDER PACKET PO ONE (08:57)
[2025-08-14] MEDS: DOCUSATE SODIUM 100 MG/10 ML LIQUID UDC PO SCH (13:25)
[2025-08-14] MEDS: ARGININE/GLUTAMINE/CALCIUM BMB 1 EACH POWD.PACK PO SCH (16:39)
[2025-08-14] MEDS ORDERED: CEFTRIAXONE /D5W 50ML IVPB **ER PYXIS IV ONE (23:59)
[2025-08-15] VITALS (14 sets, daily range): BP systolic 116–158; BP diastolic 56–74; TEMP 98–99.4; O2SAT 93–100
[2025-08-15 06:46] LABS: PLATELET COUNT (AUTO) 207 K/uL (152-348); RED BLOOD CELL COUNT(AUTO) 2.99 MIL/uL (4.06-5.63); RED CELL DISTRIBUTION WIDTH 15.0 % (12.1-16.2); WHITE BLOOD COUNT (AUTO) 6.9 K/uL (3.6-10.2)
[2025-08-15 06:58] LABS: CREATININE 0.6 mg/dL (0.6-1.3); SODIUM SERUM 139 mmol/L (136-145); UREA NITROGEN, BLOOD 44 mg/dL (7-18)
[2025-08-15] MEDS: MAGNESIUM HYDROXIDE 30 ML LIQUID UDC NG PRN (16:28)
[2025-08-16] VITALS (13 sets, daily range): BP systolic 119–173; BP diastolic 50–71; TEMP 97.7–98.8; O2SAT 94–99
[2025-08-16 06:49] LABS: PLATELET COUNT (AUTO) 221 K/uL (152-348); RED BLOOD CELL COUNT(AUTO) 2.99 MIL/uL (4.06-5.63); RED CELL DISTRIBUTION WIDTH 15.1 % (12.1-16.2); WHITE BLOOD COUNT (AUTO) 6.0 K/uL (3.6-10.2)
[2025-08-16 07:01] LABS: CREATININE 0.6 mg/dL (0.6-1.3); SODIUM SERUM 138 mmol/L (136-145); UREA NITROGEN, BLOOD 39 mg/dL (7-18)
[2025-08-17] VITALS (13 sets, daily range): BP systolic 111–145; BP diastolic 46–60; TEMP 97.4–99.1; O2SAT 9–100
[2025-08-17 07:23] LABS: PLATELET COUNT (AUTO) 228 K/uL (152-348); RED BLOOD CELL COUNT(AUTO) 3.10 MIL/uL (4.06-5.63); RED CELL DISTRIBUTION WIDTH 14.8 % (12.1-16.2); WHITE BLOOD COUNT (AUTO) 6.2 K/uL (3.6-10.2)
[2025-08-17 07:42] LABS: CREATININE 0.6 mg/dL (0.6-1.3); SODIUM SERUM 139 mmol/L (136-145); UREA NITROGEN, BLOOD 37 mg/dL (7-18)
[2025-08-17 09:23] LABS: ABG BASE EXCESS 8.4 mmol/L (-2.0-3.0); ABG HCO3 33.8 mmol/L (21.0-28.0); ABG PCO2 50.5 mmHg (35.0-48.0); ABG PH 7.443 (7.350-7.450); ABG PO2 210.8 mmHg (83.0-108.0); ABG SITE RIGHT RADIAL; ABG TOTAL HEMOGLOBIN 11.0 G/dL (13.5-17.5); AaDO2 99.4 mmHg; FIO2 48.0 %; FLOW, BLOOD GAS 7.00 L/min (0.00-30.00)
[2025-08-17 10:06] LABS: LYMPHOCYTES % (MANUAL) 18 % (20-40); MONOCYTES % (MANUAL) 13 % (2-10); NEUTROPHILS % (MANUAL) 69 % (42-75); PLATELET ESTIMATE ADEQUATE
[2025-08-17 12:21] LABS: ABG BASE EXCESS 10.3 mmol/L (-2.0-3.0); ABG HCO3 35.0 mmol/L (21.0-28.0); ABG PCO2 47.7 mmHg (35.0-48.0); ABG PH 7.484 (7.350-7.450); ABG PO2 96.6 mmHg (83.0-108.0); ABG SITE RIGHT RADIAL; ABG TOTAL HEMOGLOBIN 11.1 G/dL (13.5-17.5); AaDO2 97.7 mmHg; FIO2 28.0 %; FLOW, BLOOD GAS 2.00 L/min (0.00-30.00)
[2025-08-17] MEDS ORDERED: MELATONIN 3 MG TABLET PO PRN (14:15)
[2025-08-17] MEDS: ACETYLCYSTEINE 10% 4ML VIAL NEB SCH (15:30)
[2025-08-17 19:06] LABS: ADENOVIRUS Not Detected (Not Detected); CORONAVIRUS 229E Not Detected (Not Detected); CORONAVIRUS HKU1 Not Detected (Not Detected); CORONAVIRUS NL63 Not Detected (Not Detected); CORONAVIRUS OC43 Not Detected (Not Detected); NP BORDETELLA PERTUSIS Not Detected (Not Detected); NP CHLAMYDOPHILA PNEUMONIAE Not Detected (Not Detected); NP HUMAN METAPNEUMOVIRUS Not Detected (Not Detected); NP HUMAN RHINO/ENTERO VIRUS Not Detected (Not Detected); NP INFLUENZA A Not Detected (Not Detected); NP INFLUENZA A/H1 Not Detected (Not Detected); NP INFLUENZA A/H1-2009 Not Detected (Not Detected); NP INFLUENZA A/H3 Not Detected (Not Detected); NP INFLUENZA B Not Detected (Not Detected); NP MYCOPLASMA PNEUMONIAE Not Detected (Not Detected); NP PARAINFLUENZA 1 Not Detected (Not Detected); NP PARAINFLUENZA 2 Not Detected (Not Detected); NP PARAINFLUENZA 3 Not Detected (Not Detected); NP PARAINFLUENZA 4 Not Detected (Not Detected); NP RESPIRATORY SYNCYTIAL VIRUS Not Detected (Not Detected)
[2025-08-18] VITALS (14 sets, daily range): BP systolic 116–164; BP diastolic 47–70; TEMP 97.3–98.7; O2SAT 96–99
[2025-08-18 07:48] LABS: PLATELET COUNT (AUTO) 249 K/uL (152-348); RED BLOOD CELL COUNT(AUTO) 3.22 MIL/uL (4.06-5.63); RED CELL DISTRIBUTION WIDTH 15.0 % (12.1-16.2); WHITE BLOOD COUNT (AUTO) 5.5 K/uL (3.6-10.2)
[2025-08-18 08:03] LABS: CREATININE 0.5 mg/dL (0.6-1.3); SODIUM SERUM 138 mmol/L (136-145); UREA NITROGEN, BLOOD 43 mg/dL (7-18)
[2025-08-18 09:18] LABS: LYMPHOCYTES % (MANUAL) 19 % (20-40); METAMYELOCYTES % 1 % (0-1); MONOCYTES % (MANUAL) 3 % (2-10); MYELOCYTES % 1 % (0-0); NEUTROPHILS % (MANUAL) 76 % (42-75); PLATELET ESTIMATE ADEQUATE
[2025-08-19] VITALS (11 sets, daily range): BP systolic 111–140; BP diastolic 46–66; TEMP 97.6–98.6; O2SAT 96–99
[2025-08-19 07:39] LABS: PLATELET COUNT (AUTO) 242 K/uL (152-348); RED BLOOD CELL COUNT(AUTO) 3.07 MIL/uL (4.06-5.63); RED CELL DISTRIBUTION WIDTH 15.0 % (12.1-16.2); WHITE BLOOD COUNT (AUTO) 6.2 K/uL (3.6-10.2)
[2025-08-19 07:49] LABS: CREATININE 0.5 mg/dL (0.6-1.3); SODIUM SERUM 139 mmol/L (136-145); UREA NITROGEN, BLOOD 46 mg/dL (7-18)
[2025-08-19] MEDS ORDERED: MEDIHONEY= THERAHONEY 1.5 OZ TUBE TOP SCH (11:00)
[2025-08-19] MEDS ORDERED: PANT40TA49 PO (14:10)
[2025-08-19] MEDS ORDERED: FERR325T28 PO (14:10)
[2025-08-19] MEDS ORDERED: HYDR50TA68 PO (14:10)
[2025-08-19] MEDS ORDERED: ACET100V5 NEB (14:10)
[2025-08-19] MEDS ORDERED: PRED20TA PO (14:10)
[2025-08-19] MEDS ORDERED: GEL100GE TOP (14:10)
[2025-08-19] MEDS ORDERED: NEBU-273 MC (14:10)
[2025-08-19] MEDS ORDERED: NUTR1PAC14 PO (14:10)
[2025-08-19] MEDS ORDERED: MELA3TAB41 PO (14:10)
[2025-08-19] MEDS ORDERED: IPRA0.2S6 NEB (14:10)
[2025-08-19] MEDS ORDERED: DOCU50LI PO (14:10)
[2025-08-19] MEDS ORDERED: ALBU2.5V7 NEB (14:10)
[2025-08-20] MEDS ORDERED: GEL BASE NO.41 100 GM GEL..GRAM. TOP SCH (09:00)
== END 2025-08-19 16:45 | disposition home health service (06) | DRG 871 ==
LOC: ER 14:15 → ICU IN 17:10 → CCU 20:10 → TELE3 08-13 16:17 → MEDSURG3 08-15 09:30
PROVIDERS: ADMIT Internal Medicine; ATTEND Internal Medicine
PROC: 5A1945Z Respiratory Ventilation, 24-96 Consecutive Hours (ICD-10-PCS; principal; 2025-08-10)
PROC: 0BH17EZ Insertion of Endotracheal Airway into Trachea, Via Natural or Artificial Opening (ICD-10-PCS; 2025-08-10)
PROC: 0DH673Z Insertion of Infusion Device into Stomach, Via Natural or Artificial Opening (ICD-10-PCS; 2025-08-11)
PROC: 05HC33Z Insertion of Infusion Device into Left Basilic Vein, Percutaneous Approach (ICD-10-PCS; 2025-08-11)
PROC: 5A09357 Assistance with Respiratory Ventilation, Less than 24 Consecutive Hours, Continuous Positive Airway Pressure (ICD-10-PCS; 2025-08-13)
DX: A41.9 Sepsis, unspecified organism (principal); E43 Unspecified severe protein-calorie malnutrition; I50.33 Acute on chronic diastolic (congestive) heart failure; J15.9 Unspecified bacterial pneumonia; J96.21 Acute and chronic respiratory failure with hypoxia; R65.21 Severe sepsis with septic shock; J69.0 Pneumonitis due to inhalation of food and vomit; E87.4 Mixed disorder of acid-base balance; G93.40 Encephalopathy, unspecified; J44.0 Chronic obstructive pulmonary disease with (acute) lower respiratory infection; G20.A1 Parkinson's disease without dyskinesia, without mention of fluctuations; D63.8 Anemia in other chronic diseases classified elsewhere; I11.0 Hypertensive heart disease with heart failure; R64 Cachexia; E87.1 Hypo-osmolality and hyponatremia; J98.11 Atelectasis; L89.156 Pressure-induced deep tissue damage of sacral region; L89.326 Pressure-induced deep tissue damage of left buttock; E88.09 Other disorders of plasma-protein metabolism, not elsewhere classified; Z68.20 Body mass index [BMI] 20.0-20.9, adult; N40.0 Benign prostatic hyperplasia without lower urinary tract symptoms; J20.9 Acute bronchitis, unspecified; L89.316 Pressure-induced deep tissue damage of right buttock; R13.10 Dysphagia, unspecified; M15.9 Polyosteoarthritis, unspecified; R54 Age-related physical debility; Z74.01 Bed confinement status; T38.0X5A Adverse effect of glucocorticoids and synthetic analogues, initial encounter; R94.4 Abnormal results of kidney function studies; T42.8X6A Underdosing of antiparkinsonism drugs and other central muscle-tone depressants, initial encounter; Z91.148 Patient's other noncompliance with medication regimen for other reason; Y92.039 Unspecified place in apartment as the place of occurrence of the external cause; I95.1 Orthostatic hypotension
CPT/HCPCS: 36415; 36600; 70030-TC; 70450; 71045; 82803; 83605; 83735; 84100; 84484; 85025; 85730; 87040; 87070; 87086; 93005; 93307; 94002; 94003; 94640; 94660; 94760; A4606; A4663; A6213; G0378; J0360; J0456; J0696; J1171; J1650; J1938; J2543; J2919; J3480; J3490; J3590; J7050; J7512; J8499